=== PATIENT | female | born 1985 | race African-American/Black ===

== ENCOUNTER 2016-07-16 08:12 | Emergency (ER) | payer SELFPAY | END 2016-07-16 08:46 | disposition left against medical advice (07) | LOC: ER 08:12 | DX: Z53.21 Procedure and treatment not carried out due to patient leaving prior to being seen by health care provider (principal) | CPT/HCPCS: 99281 ==

== ENCOUNTER 2016-07-16 11:24 | Emergency (ER) | payer SELFPAY | END 2016-07-16 11:52 | disposition left against medical advice (07) | LOC: ER 11:24 | DX: Z53.21 Procedure and treatment not carried out due to patient leaving prior to being seen by health care provider (principal) | CPT/HCPCS: 99281 ==

== ENCOUNTER 2016-07-29 12:13 | Inpatient (IN) | payer MEDICAID ==
[~2016-07-29] VITALS: Ht 157.5 cm; Wt 113.4 kg
[2016-07-29] MEDS ORDERED: LORAZEPAM 2 MG/ML VIAL IM PRN (12:40)
[2016-07-29] MEDS ORDERED: HALOPERIDOL 5 MG/ML VIAL IM PRN (12:40)
[2016-07-29] MEDS ORDERED: HALOPERIDOL 5 MG TAB PO PRN (12:40)
[2016-07-29] MEDS ORDERED: MAG HYDROX 30 ML UDC PO PRN (12:40)
[2016-07-29] MEDS ORDERED: ACETAMINOPHEN 325 MG TAB PO PRN (12:40)
[2016-07-29] MEDS ORDERED: ALU/MAG/SIM 30 ML UDC PO PRN (12:40)
[2016-07-29] MEDS ORDERED: TRAZODONE 50 MG TAB PO PRN (12:40)
[2016-07-29] MEDS ORDERED: LORAZEPAM 2 MG TAB PO PRN (12:40)
[2016-07-29] MEDS ORDERED: DIPHENHYDRAMINE 50 MG/ML VIAL IM PRN (12:40)
[2016-07-29 13:15] VITALS: BP_SYST 118; RESP 20; TEMP 98.1
[2016-07-29] MEDS: DIPHENHYDRAMINE 50 MG CAP PO PRN (13:23)
[2016-07-29] MEDS ORDERED: *PINK BRACELET XX ONE (13:30)
[2016-07-29] MEDS: MULTIVITS/MINERALS (THERAGRAN M) TAB PO SCH (15:00)
[2016-07-29] MEDS: NICOTINE 21 MG/24 HR TRANSDERM SCH (15:00)
[2016-07-29 16:23] VITALS: Ht 157.5 cm; Wt 113.4 kg
[2016-07-29 19:00] VITALS: BP_SYST 128; RESP 20; TEMP 98.4
[2016-07-29] MEDS ORDERED: QUEtiapine 100 MG TAB PO SCH (21:00)
[2016-07-29] MEDS: [UNRECOGNIZED DRUG - OTHER] XX SCH (21:22)
[2016-07-30] MEDS: [UNRECOGNIZED DRUG - OTHER] XX SCH ×2 (08:00→20:00)
[2016-07-30] MEDS: MULTIVITS/MINERALS (THERAGRAN M) TAB PO SCH (09:00)
[2016-07-30] MEDS: NICOTINE 21 MG/24 HR TRANSDERM SCH (09:00)
[2016-07-30] MEDS: risperiDONE 3 MG TAB PO SCH ×2 (12:15→22:05)
[2016-07-30 12:32] VITALS: BP_SYST 150; RESP 18; TEMP 98.7
[2016-07-30 19:04] VITALS: BP_SYST 152; RESP 20; TEMP 98.6
[2016-07-31] MEDS: [UNRECOGNIZED DRUG - OTHER] XX SCH ×2 (08:00→20:00)
[2016-07-31] MEDS: risperiDONE 3 MG TAB PO SCH ×2 (08:16→21:00)
[2016-07-31] MEDS: NICOTINE 21 MG/24 HR TRANSDERM SCH (08:17)
[2016-07-31] MEDS: MULTIVITS/MINERALS (THERAGRAN M) TAB PO SCH (08:17)
[2016-07-31 09:24] VITALS: BP_SYST 136; RESP 18; TEMP 98.3
[2016-07-31 19:07] VITALS: BP_SYST 124; RESP 18; TEMP 99
[2016-08-01] MEDS: [UNRECOGNIZED DRUG - OTHER] XX SCH ×2 (08:00→20:00)
[2016-08-01] MEDS: MULTIVITS/MINERALS (THERAGRAN M) TAB PO SCH (08:18)
[2016-08-01] MEDS: NICOTINE 21 MG/24 HR TRANSDERM SCH (08:18)
[2016-08-01] MEDS: risperiDONE 3 MG TAB PO SCH ×2 (09:01→20:55)
[2016-08-01 09:09] VITALS: BP_SYST 139; RESP 17; TEMP 97.7
[2016-08-01] MEDS ORDERED: Flu Vaccine Quadrivalent 60 MCG/0.5 ML IM.VACC ONE (09:45)
[2016-08-01 19:30] VITALS: BP_SYST 134; RESP 16; TEMP 99
[2016-08-01] MEDS: DIPHENHYDRAMINE 50 MG CAP PO PRN (20:47)
[2016-08-02] MEDS: [UNRECOGNIZED DRUG - OTHER] XX SCH ×2 (08:00→20:00)
[2016-08-02 08:23] VITALS: BP_SYST 121; RESP 18; TEMP 98.3
[2016-08-02] MEDS: NICOTINE 21 MG/24 HR TRANSDERM SCH (08:59)
[2016-08-02] MEDS: MULTIVITS/MINERALS (THERAGRAN M) TAB PO SCH (08:59)
[2016-08-02] MEDS: risperiDONE 3 MG TAB PO SCH ×2 (11:00→20:38)
[2016-08-02 19:01] VITALS: BP_SYST 154; RESP 20; TEMP 98.8
[2016-08-02 20:25] VITALS: BP_SYST 116
[2016-08-03] MEDS: [UNRECOGNIZED DRUG - OTHER] XX SCH ×2 (07:03→20:00)
[2016-08-03] MEDS: MULTIVITS/MINERALS (THERAGRAN M) TAB PO SCH (08:54)
[2016-08-03] MEDS: risperiDONE 3 MG TAB PO SCH ×2 (08:54→20:17)
[2016-08-03] MEDS: NICOTINE 21 MG/24 HR TRANSDERM SCH (08:54)
[2016-08-03 09:24] VITALS: BP_SYST 145; RESP 18; TEMP 98.8
[2016-08-03 14:53] VITALS: BP_SYST 137; RESP 18
[2016-08-03 19:03] VITALS: BP_SYST 159; RESP 18; TEMP 98.4
[2016-08-04] MEDS: [UNRECOGNIZED DRUG - OTHER] XX SCH ×2 (07:33→19:02)
[2016-08-04] MEDS: MULTIVITS/MINERALS (THERAGRAN M) TAB PO SCH (08:46)
[2016-08-04] MEDS: risperiDONE 3 MG TAB PO SCH ×2 (08:46→20:34)
[2016-08-04] MEDS: NICOTINE 21 MG/24 HR TRANSDERM SCH (08:47)
[2016-08-04 12:31] VITALS: BP_SYST 131; RESP 17; TEMP 97.6
[2016-08-04] MEDS: METOPROLOL TART 25 MG TAB PO SCH ×2 (14:20→20:34)
[2016-08-04 19:05] VITALS: BP_SYST 130; RESP 18; TEMP 98.3
[2016-08-05] MEDS: risperiDONE 3 MG TAB PO SCH (08:20)
[2016-08-05] MEDS: METOPROLOL TART 25 MG TAB PO SCH (08:20)
[2016-08-05] MEDS: MULTIVITS/MINERALS (THERAGRAN M) TAB PO SCH (08:20)
[2016-08-05] MEDS: NICOTINE 21 MG/24 HR TRANSDERM SCH (08:21)
[2016-08-05] MEDS: [UNRECOGNIZED DRUG - OTHER] XX SCH (09:00)
[2016-08-05 09:37] VITALS: BP_SYST 114; RESP 18; TEMP 97.9
[2016-08-05 10:00] VITALS: BP_SYST 114; RESP 18; TEMP 97.9
[2016-08-05 15:08] VITALS: BP_SYST 114; RESP 18; TEMP 97.9
== END 2016-08-05 18:15 | disposition home or self-care (01) | DRG 885 ==
LOC: PSY 12:54
PROVIDERS: ADMIT Psychiatry & Neurology Psychiatry; ATTEND Psychiatry & Neurology Psychiatry
DX: F25.9 Schizoaffective disorder, unspecified (principal); Z68.42 Body mass index [BMI] 45.0-49.9, adult; I10 Essential (primary) hypertension; E66.9 Obesity, unspecified; R00.0 Tachycardia, unspecified; Z90.49 Acquired absence of other specified parts of digestive tract
CPT/HCPCS: 80053; 81001; 81025; 84439; 84443; 85025; 93005; 99222; 99231